=== PATIENT | female | born 1985 | race American Indian/Alaskan Native ===

== ENCOUNTER 2017-02-05 20:29 | Emergency (ER) | payer MEDICAID ==
[~2017-02-05] VITALS: Ht 162.6 cm; Wt 69.1 kg
[~2017-02-05 20:29] MED LIST: ACYC-114 PO; ASPI-650 PO; DIAZ10TA PO; DOXY100T PO; HYDR-3240 PO; HYDR-882 PO; HYDR200T PO; HYDR2TAB13 PO; LAMO100T PO; LAMO150T3 PO; LORA-445 PO; LORA0.5T PO; MELO15TA6 PO; MORP30TA81 PO; MULT-26 PO; OMEP40CA6 PO; OXYC-229 PO; OXYC10TA6 PO; SERT100T PO; VALA500T4 PO; VANC125C2 PO
[2017-02-05 20:42] VITALS: BP 129/85
== END 2017-02-05 22:37 | disposition home or self-care (01) ==
LOC: ED 22:30
DX: N99.89 Other postprocedural complications and disorders of genitourinary system (principal); N76.4 Abscess of vulva; R10.33 Periumbilical pain; Z90.49 Acquired absence of other specified parts of digestive tract; Z90.710 Acquired absence of both cervix and uterus; Z90.721 Acquired absence of ovaries, unilateral; Z88.8 Allergy status to other drugs, medicaments and biological substances
CPT/HCPCS: 99283

== ENCOUNTER 2017-02-27 20:44 | Emergency (ER) | payer MEDICAID ==
[~2017-02-27] VITALS: Ht 162.6 cm; Wt 69.3 kg
[2017-02-27 20:49] VITALS: BP 106/70
[2017-02-28] MEDS ORDERED: HYDR50CA PO (18:58)
== END 2017-02-27 23:21 | disposition home or self-care (01) ==
LOC: ED 21:17
DX: F41.1 Generalized anxiety disorder (principal); M06.9 Rheumatoid arthritis, unspecified; Z90.710 Acquired absence of both cervix and uterus; Z88.1 Allergy status to other antibiotic agents; Z88.8 Allergy status to other drugs, medicaments and biological substances
CPT/HCPCS: 93005; 99284

== ENCOUNTER 2017-04-01 15:39 | Emergency (ER) | payer MEDICAID ==
[~2017-04-01] VITALS: Ht 162.6 cm; Wt 67.9 kg
[~2017-04-01 15:39] MED LIST changes: +HYDR50CA PO
[2017-04-01] MEDS ORDERED: SODIUM CHLORIDE FLUSH 10ML SYR IVF ONE (16:30)
[2017-04-01] MEDS ORDERED: LORazepam 2 MG/ML, 1ML IVPush ONE ×2 (16:30→18:00)
[2017-04-01] MEDS ORDERED: KETOROLAC 30 MG/1 ML IVPush ONE (16:30)
[2017-04-01] MEDS ORDERED: KETOROLAC 30 MG/1 ML ONE (16:40)
[2017-04-01] MEDS ORDERED: LORazepam 2 MG/ML, 1ML ONE ×2 (16:41→17:37)
[2017-04-01 17:06] LABS: BLOOD UREA NITROGEN 12 mg/dL (7-18)
[2017-04-01] MEDS ORDERED: OMNIPAQUE 350 MG/ML, 100ML BOTTLE ONE (17:57)
[2017-04-01 18:58] VITALS: BP 127/74
== END 2017-04-01 19:00 | disposition home or self-care (01) ==
LOC: ED 17:20
DX: R00.2 Palpitations (principal); R06.00 Dyspnea, unspecified; F41.1 Generalized anxiety disorder; R06.4 Hyperventilation; Z90.710 Acquired absence of both cervix and uterus; Z90.49 Acquired absence of other specified parts of digestive tract; M06.9 Rheumatoid arthritis, unspecified
CPT/HCPCS: 36415; 71020; 71275; 80048; 82040; 84436; 84443; 84484; 85025; 85379; 93005; 96374; 96375; 96376; 99285; J1885; J2060; Q9967

== ENCOUNTER 2017-04-11 19:24 | Emergency (ER) | payer MEDICAID ==
[~2017-04-11] VITALS: Ht 162.6 cm; Wt 67.6 kg
[2017-04-11 19:24] VITALS: BP 113/68
[2017-04-11] MEDS ORDERED: KETOROLAC 30 MG/1 ML IM ONE (20:00)
[2017-04-11] MEDS ORDERED: DIAZEPAM 5 MG TABLET PO ONE (20:00)
[2017-04-11] MEDS ORDERED: KETOROLAC 30 MG/1 ML ONE (20:05)
[2017-04-11] MEDS ORDERED: DIAZEPAM 5 MG TABLET ONE (20:06)
== END 2017-04-11 22:43 | disposition home or self-care (01) ==
LOC: ED 22:11
DX: S33.5XXA Sprain of ligaments of lumbar spine, initial encounter (principal); S16.1XXA Strain of muscle, fascia and tendon at neck level, initial encounter; M06.9 Rheumatoid arthritis, unspecified; Z90.49 Acquired absence of other specified parts of digestive tract; Z90.710 Acquired absence of both cervix and uterus; Z90.721 Acquired absence of ovaries, unilateral; Z88.8 Allergy status to other drugs, medicaments and biological substances; Z91.040 Latex allergy status; X58.XXXA Exposure to other specified factors, initial encounter; Y93.89 Activity, other specified; Y92.89 Other specified places as the place of occurrence of the external cause; Y99.9 Unspecified external cause status
CPT/HCPCS: 72110; 72125; 96372; 99284; J1885

== ENCOUNTER 2017-05-21 17:46 | Emergency (ER) | payer MEDICAID ==
[~2017-05-21] VITALS: Ht 162.6 cm; Wt 66.6 kg
[~2017-05-21 17:46] MED LIST changes: -HYDR2TAB13 PO; +HYDR2TAB29 PO
[2017-05-21] MEDS ORDERED: DIAZEPAM 5 MG TABLET PO ONE (18:30)
[2017-05-21] MEDS ORDERED: ACETAMINOPHEN 325 MG TABLET PO ONE (18:30)
[2017-05-21] MEDS ORDERED: DIAZEPAM 5 MG TABLET ONE (18:47)
[2017-05-21] MEDS ORDERED: ACETAMINOPHEN 325 MG TABLET ONE (18:47)
[2017-05-21 18:51] LABS: ASPARTATE AMINO TRANSFERASE 12 U/L (15-37); BLOOD UREA NITROGEN 14 mg/dL (7-18)
[2017-05-21 19:06] VITALS: BP 103/62
== END 2017-05-21 19:44 | disposition home or self-care (01) ==
LOC: ED 19:30
DX: M79.661 Pain in right lower leg (principal); M79.662 Pain in left lower leg; M79.1 Myalgia; M06.9 Rheumatoid arthritis, unspecified; G89.29 Other chronic pain; G43.909 Migraine, unspecified, not intractable, without status migrainosus
CPT/HCPCS: 36415; 80053; 83735; 85025; 99284

== ENCOUNTER 2017-06-19 22:49 | Emergency (ER) | payer MEDICAID ==
[~2017-06-19] VITALS: Ht 162.6 cm; Wt 67.4 kg
[2017-06-19] MEDS ORDERED: TRAM50TA2 PO (23:46)
[2017-06-20] MEDS ORDERED: HYDROcodone/APAP 5/325 TABLET PO ONE
[2017-06-20] MEDS ORDERED: HYDROcodone/APAP 5/325 TABLET ONE (00:21)
[2017-06-20 01:13] VITALS: BP 134/84
== END 2017-06-20 01:15 | disposition home or self-care (01) ==
LOC: ED 23:18
DX: R10.2 Pelvic and perineal pain (principal); G43.909 Migraine, unspecified, not intractable, without status migrainosus; G89.29 Other chronic pain; M06.9 Rheumatoid arthritis, unspecified; Z90.49 Acquired absence of other specified parts of digestive tract; Z90.710 Acquired absence of both cervix and uterus; Z91.040 Latex allergy status; Z88.1 Allergy status to other antibiotic agents; Z88.5 Allergy status to narcotic agent
CPT/HCPCS: 76830; 81001; 99285

== ENCOUNTER 2017-10-05 20:46 | Emergency (ER) | payer MEDICAID ==
[~2017-10-05] VITALS: Ht 162.6 cm; Wt 70.8 kg
[~2017-10-05 20:46] MED LIST changes: -OXYC-229 PO; +OXYC-307 PO; +TRAM50TA2 PO
[2017-10-05] MEDS ORDERED: HYDROmorphone 1 MG/ML, 1ML ONE (21:29)
[2017-10-05] MEDS ORDERED: ONDANSETRON 2MG/ML, 2ML ONE (21:29)
[2017-10-05] MEDS ORDERED: ONDANSETRON ODT 4 MG PO ONE (21:30)
[2017-10-05] MEDS ORDERED: HYDROmorphone 1 MG/ML, 1ML IM ONE ×2 (21:30→23:00)
[2017-10-05 21:48] LABS: HEMATOCRIT 37.1 % (34.6-47.8); HEMOGLOBIN 12.5 g/dL (11.7-16.4); WHITE BLOOD COUNT 6.5 x10^3/uL (3.4-10)
[2017-10-05 21:53] LABS: BLOOD UREA NITROGEN 21 mg/dL (7-18)
[2017-10-05 23:40] VITALS: BP 122/80
== END 2017-10-05 23:55 | disposition home or self-care (01) ==
LOC: ED 21:06
DX: M79.604 Pain in right leg (principal); G43.909 Migraine, unspecified, not intractable, without status migrainosus; G89.29 Other chronic pain; M06.9 Rheumatoid arthritis, unspecified; Z90.49 Acquired absence of other specified parts of digestive tract; Z90.710 Acquired absence of both cervix and uterus; Z86.718 Personal history of other venous thrombosis and embolism
CPT/HCPCS: 36415; 73502; 80048; 81003; 82040; 85025; 93971; 96372; 99285; J1170; Q0162

== ENCOUNTER 2017-10-18 23:22 | Emergency (ER) | payer MEDICAID ==
[~2017-10-18] VITALS: Ht 162.6 cm; Wt 69.7 kg
[2017-10-19] MEDS ORDERED: SODIUM CHLORIDE FLUSH 10ML SYR IVF ONE
[2017-10-19] MEDS ORDERED: MAALOX/HYOSCYAMINE/LIDOCAINE 45 ML BTL PO ONE
[2017-10-19] MEDS ORDERED: SODIUM CHLORIDE 0.9% 1,000ML IVBOLUS ONE
[2017-10-19 00:15] LABS: HEMATOCRIT 40.5 % (34.6-47.8); HEMOGLOBIN 13.6 g/dL (11.7-16.4); WHITE BLOOD COUNT 5.8 x10^3/uL (3.4-10)
[2017-10-19 00:28] LABS: ASPARTATE AMINO TRANSFERASE 20 U/L (15-37); BLOOD UREA NITROGEN 17 mg/dL (7-18)
[2017-10-19 02:11] VITALS: BP 116/69
== END 2017-10-19 02:15 | disposition home or self-care (01) ==
LOC: ED 10-19 00:15
DX: R10.13 Epigastric pain (principal); R19.7 Diarrhea, unspecified; G43.909 Migraine, unspecified, not intractable, without status migrainosus; M06.9 Rheumatoid arthritis, unspecified; G89.29 Other chronic pain; Z90.49 Acquired absence of other specified parts of digestive tract
CPT/HCPCS: 36415; 74020; 80053; 81001; 83690; 85025; 87086; 96360; 99285; J7030

== ENCOUNTER 2017-11-11 16:44 | Emergency (ER) | payer MEDICAID ==
[~2017-11-11] VITALS: Ht 162.6 cm; Wt 68.1 kg
[2017-11-11] MEDS ORDERED: SODIUM CHLORIDE 0.9% 1,000ML IVBOLUS ONE (18:00)
[2017-11-11] MEDS ORDERED: ALBUTEROL SULFATE 2.5 MG/3 ML NPPB ONE (18:00)
[2017-11-11] MEDS ORDERED: APAP/CODEINE 300/30MG TABLET PO PRN (18:00)
[2017-11-11] MEDS ORDERED: ALBUTEROL SULFATE 2.5 MG/3 ML ONE (18:01)
[2017-11-11 18:03] LABS: BASOPHILS # (AUTO) 0.03 x10^3/uL (0-0.1); BASOPHILS % (AUTO) 0 % (0-1); EOSINOPHILS % (AUTO) 0 % (1-7); LYMPHOCYTES # (AUTO) 2.11 x10^3/uL (1-3.4); LYMPHOCYTES % (AUTO) 31 % (22-44); MD NO; MEAN CORPUSCULAR HEMOGLOBIN 30.2 pg (27.0-34.8); MEAN CORPUSCULAR HGB CONC 34.1 g/dL (32.4-35.8); MEAN CORPUSCULAR VOLUME 88.3 fL (80-100); MEAN PLATELET VOLUME 8.7 fL (7.4-10.4); MONOCYTES # (AUTO) 0.58 x10^3/uL (0.2-0.8); MONOCYTES % (AUTO) 8 % (2-9); NEUTROPHILS # (AUTO) 4.15 x10^3/uL (1.8-6.8); NEUTROPHILS % (AUTO) 60 % (42-75); PLATELET COUNT 214 x10^3/uL (130-400); RED BLOOD COUNT 4.42 x10^6/uL (3.82-5.3); RED CELL DISTRIBUTION WIDTH 13.3 % (9.6-15.2)
[2017-11-11 18:09] LABS: ANION GAP 7 mmol/L (5-15); CALCIUM 8.4 mg/dL (8.5-10.1); CHLORIDE 105 mmol/L (98-107); CREATININE 0.84 mg/dL (0.55-1.02)
[2017-11-11 18:20] LABS: RAPID INFLUENZA A Negative (Negative); RAPID INFLUENZA B POSITIVE (Negative)
[2017-11-11 19:36] VITALS: BP 109/65
== END 2017-11-11 19:51 | disposition home or self-care (01) ==
LOC: ED 17:31
DX: J10.1 Influenza due to other identified influenza virus with other respiratory manifestations (principal); M06.9 Rheumatoid arthritis, unspecified; G89.29 Other chronic pain
CPT/HCPCS: 36415; 71020; 80048; 85025; 87400; 93005; 94640; 96360; 99285; J7030; J7613

== ENCOUNTER 2018-07-26 20:03 | Emergency (ER) | payer MEDICAID ==
[~2018-07-26 20:03] MED LIST changes: -HYDR200T PO; +HYDR200T72 PO
== END 2018-07-26 20:19 | disposition left against medical advice (07) ==
LOC: ED 20:13
DX: R51 Headache (principal); Z53.21 Procedure and treatment not carried out due to patient leaving prior to being seen by health care provider

== ENCOUNTER 2018-07-26 23:50 | Emergency (ER) | payer MEDICAID ==
[~2018-07-26] VITALS: Ht 162.6 cm; Wt 70.0 kg
[2018-07-27 02:51] VITALS: BP 106/66
== END 2018-07-27 03:28 | disposition home or self-care (01) ==
LOC: ED 07-27 00:39
DX: G44.311 Acute post-traumatic headache, intractable (principal); M06.9 Rheumatoid arthritis, unspecified
CPT/HCPCS: 99283

== ENCOUNTER 2018-09-04 17:10 | Emergency (ER) | payer MEDICAID ==
[~2018-09-04] VITALS: Ht 162.6 cm; Wt 70.0 kg
[~2018-09-04 17:10] MED LIST changes: +HYDR-3653 PO; -HYDR-882 PO
[2018-09-04] MEDS ORDERED: ACYC-57 PO (17:39)
[2018-09-04 18:12] LABS: BASOPHILS # (AUTO) 0.05 x10^3/uL (0-0.1); BASOPHILS % (AUTO) 1 % (0-1); EOSINOPHILS % (AUTO) 2 % (1-7); LYMPHOCYTES # (AUTO) 3.41 x10^3/uL (1-3.4); LYMPHOCYTES % (AUTO) 53 % (22-44); MD SCAN; MEAN CORPUSCULAR HGB CONC 33.9 g/dL (32.4-35.8); MEAN CORPUSCULAR VOLUME 88.3 fL (80-100); MEAN PLATELET VOLUME 8.4 fL (7.4-10.4); MONOCYTES # (AUTO) 0.37 x10^3/uL (0.2-0.8); MONOCYTES % (AUTO) 6 % (2-9); NEUTROPHILS # (AUTO) 2.54 x10^3/uL (1.8-6.8); NEUTROPHILS % (AUTO) 39 % (42-75); PLATELET COUNT 261 x10^3/uL (130-400); RED CELL DISTRIBUTION WIDTH 13.5 % (9.6-15.2)
[2018-09-04 18:16] LABS: ALANINE AMINOTRANSFERASE 21 U/L (12-78); ALBUMIN 3.9 g/dL (3.4-5.0); ANION GAP 10 mmol/L (5-15); CALCIUM 8.8 mg/dL (8.5-10.1); CHLORIDE 110 mmol/L (98-107); CREATININE 0.75 mg/dL (0.55-1.02)
[2018-09-04 18:18] LABS: ALKALINE PHOSPHATASE 83 U/L (45-117); BILIRUBIN,TOTAL 0.2 mg/dL (0.2-1.0); TOTAL PROTEIN 7.6 g/dL (6.4-8.2)
[2018-09-04] MEDS ORDERED: OXYcodone/APAP 5/325MG TABLET PO ONE (18:30)
[2018-09-04] MEDS ORDERED: OXYcodone/APAP 5/325MG TABLET ONE (18:34)
[2018-09-04 18:39] LABS: HCG UR SG 1.024 (1.003-1.030); MICROSCOPIC NOT IND
[2018-09-04 18:46] LABS: CULTURE INDICATED? NO
[2018-09-04 21:16] VITALS: BP 110/68
== END 2018-09-04 21:25 | disposition home or self-care (01) ==
LOC: ED 19:03
DX: R10.32 Left lower quadrant pain (principal); R30.0 Dysuria; G43.909 Migraine, unspecified, not intractable, without status migrainosus; Z90.49 Acquired absence of other specified parts of digestive tract; Z90.710 Acquired absence of both cervix and uterus
CPT/HCPCS: 36415; 76770; 80053; 81003; 81025; 85025; 99285

== ENCOUNTER 2018-11-23 19:46 | Emergency (ER) | payer MEDICAID ==
[~2018-11-23] VITALS: Ht 162.6 cm; Wt 69.4 kg
[~2018-11-23 19:46] MED LIST changes: +ACYC-57 PO
[2018-11-23] MEDS ORDERED: ADAL20KI INJ (20:03)
[2018-11-23] MEDS ORDERED: HYDR-3622 PO (20:03)
[2018-11-23] MEDS ORDERED: LEUP7.5S INJ (20:03)
[2018-11-23 20:06] VITALS: BP 112/74
[2018-11-23 20:14] LABS: MICROSCOPIC NOT IND
[2018-11-23 20:18] LABS: CULTURE INDICATED? NO
--- NOTE | 2018-11-23 20:20 | NUR ---
PT RESTING IN BED. PT IN HOSPITAL GOWN. PT PROVIDED URINE SAMPLE WHICH HAS BEEN WALKEDTO LAB. PTON VITALS MONITORS. WILL CONTINUE TO MONITOR. CALL LIGHT WITHIN REACH.
[2018-11-23 21:03] LABS: BASOPHILS # (AUTO) 0.02 x10^3/uL (0-0.1); BASOPHILS % (AUTO) 0 % (0-1); EOSINOPHILS # (AUTO) 0.07 x10^3/uL (0-0.4); EOSINOPHILS % (AUTO) 1 % (1-7); LYMPHOCYTES % (AUTO) 45 % (22-44); MD NO; MEAN CORPUSCULAR HEMOGLOBIN 29.7 pg (27.0-34.8); MEAN CORPUSCULAR VOLUME 87.2 fL (80-100); MEAN PLATELET VOLUME 8.5 fL (7.4-10.4); MONOCYTES # (AUTO) 0.28 x10^3/uL (0.2-0.8); MONOCYTES % (AUTO) 6 % (2-9); NEUTROPHILS # (AUTO) 2.38 x10^3/uL (1.8-6.8); NEUTROPHILS % (AUTO) 48 % (42-75); PLATELET COUNT 278 x10^3/uL (130-400); RED BLOOD COUNT 4.01 x10^6/uL (3.82-5.3); RED CELL DISTRIBUTION WIDTH 14.3 % (9.6-15.2)
[2018-11-23 21:09] LABS: ANION GAP 6 mmol/L (5-15); CALCIUM 8.6 mg/dL (8.5-10.1); CHLORIDE 111 mmol/L (98-107)
== END 2018-11-23 21:34 ==
LOC: ED 21:02
DX: R10.9 Unspecified abdominal pain (principal); G43.909 Migraine, unspecified, not intractable, without status migrainosus; M06.9 Rheumatoid arthritis, unspecified; Z90.49 Acquired absence of other specified parts of digestive tract; Z90.710 Acquired absence of both cervix and uterus; Z90.89 Acquired absence of other organs; Z87.891 Personal history of nicotine dependence
CPT/HCPCS: 36415; 80048; 81003; 85025; 99283

== ENCOUNTER 2019-02-14 21:01 | Emergency (ER) | payer MEDICAID ==
[~2019-02-14] VITALS: Ht 162.6 cm; Wt 70.7 kg
[~2019-02-14 21:01] MED LIST changes: +ADAL20KI INJ; +HYDR-3622 PO; +LEUP7.5S INJ; -VANC125C2 PO; +VANC125C3 PO
--- NOTE | 2019-02-14 21:35 | NUR ---
SBAR report received from elise RNKelly. Pt changing into gown, aware of plan to have CT, labs, and IV.
--- NOTE | 2019-02-14 21:49 | NUR ---
PIV started, labs drawn. CT called to collect pt.
--- NOTE | 2019-02-14 21:50 | NUR ---
Pt to imaging, with tech, via guwil.
[2019-02-14 21:56] LABS: BASOPHILS # (AUTO) 0.03 x10^3/uL (0-0.1); BASOPHILS % (AUTO) 0 % (0-1); EOSINOPHILS # (AUTO) 0.08 x10^3/uL (0-0.4); EOSINOPHILS % (AUTO) 1 % (1-7); LYMPHOCYTES # (AUTO) 2.92 x10^3/uL (1-3.4); LYMPHOCYTES % (AUTO) 45 % (22-44); MD NO; MEAN CORPUSCULAR HEMOGLOBIN 29.1 pg (27.0-34.8); MEAN CORPUSCULAR HGB CONC 33.8 g/dL (32.4-35.8); MEAN CORPUSCULAR VOLUME 86.3 fL (80-100); MEAN PLATELET VOLUME 8.3 fL (7.4-10.4); MONOCYTES # (AUTO) 0.38 x10^3/uL (0.2-0.8); MONOCYTES % (AUTO) 6 % (2-9); NEUTROPHILS # (AUTO) 3.03 x10^3/uL (1.8-6.8); NEUTROPHILS % (AUTO) 47 % (42-75); PLATELET COUNT 346 x10^3/uL (130-400); RED BLOOD COUNT 4.51 x10^6/uL (3.82-5.3); RED CELL DISTRIBUTION WIDTH 14.1 % (9.6-15.2)
--- NOTE | 2019-02-14 21:58 | NUR ---
Pt back to room from imaging.
[2019-02-14] MEDS ORDERED: OMNIPAQUE 350 MG/ML, 100ML BOTTLE ONE (22:00)
[2019-02-14 22:06] LABS: ALANINE AMINOTRANSFERASE 39 U/L (12-78); ANION GAP 8 mmol/L (5-15); CALCIUM 8.6 mg/dL (8.5-10.1); CHLORIDE 109 mmol/L (98-107); CREATININE 0.95 mg/dL (0.55-1.02)
[2019-02-14 22:08] LABS: ALKALINE PHOSPHATASE 96 U/L (45-117); BILIRUBIN,TOTAL 0.2 mg/dL (0.2-1.0); TOTAL PROTEIN 7.9 g/dL (6.4-8.2)
--- NOTE | 2019-02-14 22:11 | NUR ---
Pt upself to bathroom, urine sample requested, education on proper collection technique done.
[2019-02-14 22:29] LABS: MICROSCOPIC NOT IND
[2019-02-14 22:36] LABS: CULTURE INDICATED? NO
[2019-02-14 23:19] VITALS: BP 114/64
--- NOTE | 2019-02-14 23:20 | NUR ---
Patient/Caregiver given discharge instructions and they have confirmed that they understand the instructions. Patient ambulatory with steady gait.
== END 2019-02-14 23:21 | disposition home or self-care (01) ==
LOC: ED 22:44
DX: L03.311 Cellulitis of abdominal wall (principal); G43.909 Migraine, unspecified, not intractable, without status migrainosus; G89.29 Other chronic pain
CPT/HCPCS: 36415; 74177; 80053; 81003; 85025; 99284; Q9967

== ENCOUNTER 2019-04-29 17:28 | Emergency (ER) | payer MEDICAID ==
[~2019-04-29] VITALS: Ht 162.6 cm; Wt 69.3 kg
[2019-04-29 18:21] LABS: MEAN CORPUSCULAR HEMOGLOBIN 29.4 pg (27.0-34.8); MEAN CORPUSCULAR HGB CONC 33.3 g/dL (32.4-35.8); MEAN CORPUSCULAR VOLUME 88.3 fL (80-100); MEAN PLATELET VOLUME 8.6 fL (7.4-10.4); PLATELET COUNT 237 x10^3/uL (130-400); RED CELL DISTRIBUTION WIDTH 14.8 % (9.6-15.2)
[2019-04-29 18:24] LABS: ALANINE AMINOTRANSFERASE 22 U/L (12-78); ALBUMIN 4.1 g/dL (3.4-5.0); ANION GAP 5 mmol/L (5-15); CALCIUM 8.9 mg/dL (8.5-10.1); CHLORIDE 107 mmol/L (98-107); CREATININE 0.93 mg/dL (0.55-1.02)
[2019-04-29 18:28] LABS: ALKALINE PHOSPHATASE 71 U/L (45-117); BILIRUBIN,TOTAL 0.2 mg/dL (0.2-1.0); TOTAL PROTEIN 7.8 g/dL (6.4-8.2)
--- NOTE | 2019-04-29 18:59 | NUR ---
NO ANSWER IN LOBBY
[2019-04-29 19:01] LABS: MD YES
[2019-04-29 19:06] LABS: <PLATELET ESTIMATE> ADEQUATE; <PLT MORPHOLOGY> NORMAL PLT MORPH; <RBC MORPHOLOGY> NORMAL; EOS#(MANUAL) 0.05 x10^3/uL (0.0-0.4); EOS% (MANUAL) 1 % (1-7); LYMPH#(MANUAL) 3.02 x10^3/uL (1-3.4); LYMPHS% (MANUAL) 58 % (22-44); MONOS#(MANUAL) 0.36 x10^3/uL (0.3-2.7); MONOS% (MANUAL) 7 % (2-9); REACTIVE LYMPHS # (MANUAL) 0.05 x10^3/uL (0-0); REACTIVE LYMPHS % (MANUAL) 1 % (0-0); SEG#(MANUAL) 1.72 x10^3/uL (1.8-6.8); SEGS% (MANUAL) 33 % (42-75)
[2019-04-29 19:52] LABS: CULTURE INDICATED? YES; MICROSCOPIC AUTO
--- NOTE | 2019-04-29 20:48 | NUR ---
Asking for meds for pain. PA aware. Patient to CT.
[2019-04-29 21:20] VITALS: BP 92/60
--- NOTE | 2019-04-29 21:20 | NUR ---
Tylenol admin. Up for DC.
[2019-04-29] MEDS ORDERED: ACETAMINOPHEN 325 MG TABLET PO ONE (21:30)
--- NOTE | 2019-04-29 21:34 | NUR ---
GIVEN DC INSTRUCTION PT UNDERSTOOD GIVEN UROLOGIST REFERAL PT UNDERSTOOD
== END 2019-04-29 21:37 | disposition home or self-care (01) ==
LOC: ED 21:31
DX: R31.29 Other microscopic hematuria (principal); R10.2 Pelvic and perineal pain; Z90.49 Acquired absence of other specified parts of digestive tract; Z90.710 Acquired absence of both cervix and uterus; Z88.5 Allergy status to narcotic agent
CPT/HCPCS: 36415; 74176; 76830; 80053; 81001; 84703; 85025; 87086; 99284

== ENCOUNTER 2020-05-12 16:38 | Emergency (ER) | payer MEDICAID ==
[~2020-05-12] VITALS: Ht 162.6 cm; Wt 70.8 kg
[~2020-05-12 16:38] MED LIST changes: -LAMO100T PO; +LAMO100T8 PO; +OMEP40CA42 PO; -OMEP40CA6 PO
[2020-05-12 16:41] VITALS: BP 117/80
== END 2020-05-12 18:15 | disposition home or self-care (01) ==
LOC: ED 17:55
DX: F41.1 Generalized anxiety disorder (principal); M19.90 Unspecified osteoarthritis, unspecified site; G89.29 Other chronic pain; Z85.43 Personal history of malignant neoplasm of ovary
CPT/HCPCS: 99283

== ENCOUNTER 2020-05-31 22:56 | Emergency (ER) | payer MEDICAID ==
[~2020-05-31] VITALS: Ht 162.6 cm; Wt 73.0 kg
[2020-05-31 23:03] VITALS: BP 143/83
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
--- NOTE | 2020-06-01 00:31 | NUR ---
Patient given discharge instructions and they have confirmed that they understand the instructions. Patient ambulatory with steady gait.
== END 2020-06-01 00:55 | disposition home or self-care (01) ==
LOC: ED 06-01 00:41
DX: G89.11 Acute pain due to trauma (principal); M25.512 Pain in left shoulder; M25.552 Pain in left hip; M32.9 Systemic lupus erythematosus, unspecified; M06.9 Rheumatoid arthritis, unspecified; Z90.49 Acquired absence of other specified parts of digestive tract; Z90.710 Acquired absence of both cervix and uterus; W18.2XXA Fall in (into) shower or empty bathtub, initial encounter; Y93.89 Activity, other specified; Y92.098 Other place in other non-institutional residence as the place of occurrence of the external cause; Y99.8 Other external cause status
CPT/HCPCS: 99284

== ENCOUNTER 2020-06-17 18:01 | Emergency (ER) | payer MEDICAID ==
[~2020-06-17] VITALS: Ht 162.6 cm; Wt 71.8 kg
[2020-06-17 18:06] VITALS: BP 108/69
[2020-06-17] MEDS ORDERED: SODIUM CHLORIDE 0.9% 1,000ML IVBOLUS ONE (18:30)
[2020-06-17 19:06] LABS: BASOPHILS # (AUTO) 0.03 x10^3/uL (0-0.1); BASOPHILS % (AUTO) 0 % (0-1); EOSINOPHILS # (AUTO) 0.08 x10^3/uL (0-0.4); EOSINOPHILS % (AUTO) 1 % (1-7); LYMPHOCYTES % (AUTO) 37 % (22-44); MD NO; MEAN CORPUSCULAR HEMOGLOBIN 28.7 pg (27.0-34.8); MEAN CORPUSCULAR HGB CONC 32.8 g/dL (32.4-35.8); MEAN CORPUSCULAR VOLUME 87.5 fL (80-100); MEAN PLATELET VOLUME 8.6 fL (7.4-10.4); MONOCYTES # (AUTO) 0.52 x10^3/uL (0.2-0.8); MONOCYTES % (AUTO) 7 % (2-9); NEUTROPHILS % (AUTO) 55 % (42-75); PLATELET COUNT 328 x10^3/uL (130-400); RED BLOOD COUNT 4.39 x10^6/uL (3.82-5.3); RED CELL DISTRIBUTION WIDTH 15.7 % (9.6-15.2)
[2020-06-17 19:18] LABS: ANION GAP 5 mmol/L (5-15); CHLORIDE 111 mmol/L (98-107); CREATININE 0.89 mg/dL (0.55-1.02)
== END 2020-06-17 20:05 | disposition home or self-care (01) ==
LOC: ED 20:00
DX: R07.89 Other chest pain (principal); Z20.828 Contact with and (suspected) exposure to other viral communicable diseases; R05 Cough; R50.9 Fever, unspecified; R06.02 Shortness of breath; R51 Headache; R19.7 Diarrhea, unspecified; M06.9 Rheumatoid arthritis, unspecified; M79.10 Myalgia, unspecified site; Z79.899 Other long term (current) drug therapy; Z90.89 Acquired absence of other organs; Z90.49 Acquired absence of other specified parts of digestive tract; Z90.710 Acquired absence of both cervix and uterus
CPT/HCPCS: 36415; 71045; 80048; 82040; 85025; 87635; 93005; 96360; 99285; J7030

== ENCOUNTER 2020-09-14 18:40 | Emergency (ER) | payer MEDICAID ==
[~2020-09-14] VITALS: Ht 162.6 cm; Wt 70.7 kg
[2020-09-14 19:09] VITALS: BP 110/51
--- NOTE | 2020-09-14 19:34 | NUR ---
LLE PAIN STARTED WHILE GOING UP STAIRS AT WORK 12 NOON TODAY. FELT LIKE A PULLING PAIN AND A CRAMP. HX OF PREVIOUS KNEE SURGERY. ABLE TO AMBULATE MINIMAL SWELLING NOTED CMS INTACT
--- NOTE | 2020-09-14 20:02 | NUR ---
RECEIVED REPORT FROM LAYA PRESTON TO ASSUME CARE OF PT.
--- NOTE | 2020-09-14 20:11 | NUR ---
PT. REQUESTING PAIN MEDS. DR. MARKS AT BS AT THIS TIME.
[2020-09-14] MEDS ORDERED: HYDROcodone/APAP 5/325 TABLET ONE (20:21)
[2020-09-14] MEDS ORDERED: HYDROcodone/APAP 5/325 TABLET PO ONE (20:30)
== END 2020-09-14 20:35 | disposition home or self-care (01) ==
LOC: ED 20:00
DX: G89.11 Acute pain due to trauma (principal); M25.562 Pain in left knee; Z96.652 Presence of left artificial knee joint; X58.XXXA Exposure to other specified factors, initial encounter; Y93.89 Activity, other specified; Y92.89 Other specified places as the place of occurrence of the external cause; Y99.8 Other external cause status
CPT/HCPCS: 99283

== ENCOUNTER 2020-11-08 19:55 | Emergency (ER) | payer MEDICAID ==
[~2020-11-08] VITALS: Ht 162.6 cm; Wt 70.3 kg
[2020-11-08] MEDS ORDERED: HYDROmorphone 1 MG/ML, 1ML INJ ONE (20:23)
[2020-11-08] MEDS ORDERED: HYDROmorphone 1 MG/ML, 1ML INJ IM ONE (20:30)
--- NOTE | 2020-11-08 20:31 | NUR ---
PT MEDICATED PER JAN, PT SITTING IN TRIAGE 2 FOR MONITORING FOR NEXT 15 MIN
[2020-11-08 20:49] VITALS: BP 125/74
== END 2020-11-08 20:50 | disposition home or self-care (01) ==
LOC: ED 20:00
DX: M25.562 Pain in left knee (principal); G43.909 Migraine, unspecified, not intractable, without status migrainosus; Z90.89 Acquired absence of other organs; Z90.49 Acquired absence of other specified parts of digestive tract; Z90.710 Acquired absence of both cervix and uterus; Z90.721 Acquired absence of ovaries, unilateral; Z87.891 Personal history of nicotine dependence
CPT/HCPCS: 96372; 99283; J1170

== ENCOUNTER 2020-11-30 20:11 | Emergency (ER) | payer MEDICAID ==
[~2020-11-30] VITALS: Ht 162.6 cm; Wt 68.8 kg
[2020-11-30] MEDS ORDERED: ONDANSETRON 2MG/ML, 2ML IVPush ONE (20:30)
[2020-11-30] MEDS ORDERED: HYDROmorphone 1 MG/ML, 1ML INJ IVPush PRN (20:30)
[2020-11-30] MEDS ORDERED: SODIUM CHLORIDE 0.9% 1,000ML IVBOLUS ONE (20:30)
[2020-11-30 20:45] LABS: BASOPHILS % (AUTO) 1 % (0-1); EOSINOPHILS % (AUTO) 0 % (1-7); LYMPHOCYTES % (AUTO) 36 % (22-44); MEAN CORPUSCULAR HEMOGLOBIN 29.6 pg (27.0-34.8); MEAN PLATELET VOLUME 8.1 fL (7.4-10.4); MONOCYTES % (AUTO) 6 % (2-9); NEUTROPHILS % (AUTO) 58 % (42-75); PLATELET COUNT 334 x10^3/uL (130-400); RED BLOOD COUNT 4.24 x10^6/uL (3.82-5.3); RED CELL DISTRIBUTION WIDTH 15.4 % (9.6-15.2)
--- NOTE | 2020-11-30 20:45 | NUR ---
C/O RT OVARIAN AREA PAIN X 2 DAYS; WORSENED TODAY. +N./V./ TOOK TORADOL AND HYDROCODONE AT 1745. TOOK ZOFRAN AT 0930. LAST ORAL INTAKE: 0700. LAST BM: TODAY.
[2020-11-30] MEDS ORDERED: HYDR-3245 PO (20:49)
--- NOTE | 2020-11-30 20:50 | NUR ---
ROOM LIGHTS OFF FOR U/S. UNABLE TO START IV AT THIS TIME.
[2020-11-30 20:51] LABS: MD NO
[2020-11-30 20:58] LABS: ALANINE AMINOTRANSFERASE 19 U/L (12-78); ALBUMIN 4.3 g/dL (3.4-5.0); ANION GAP 9 mmol/L (5-15); CALCIUM 8.9 mg/dL (8.5-10.1); CHLORIDE 111 mmol/L (98-107); CREATININE 0.88 mg/dL (0.55-1.02)
[2020-11-30 21:01] LABS: ALKALINE PHOSPHATASE 82 U/L (45-117); BILIRUBIN,TOTAL 0.3 mg/dL (0.2-1.0); TOTAL PROTEIN 7.7 g/dL (6.4-8.2)
[2020-11-30] MEDS ORDERED: HYDROmorphone 1 MG/ML, 1ML INJ ONE (21:16)
[2020-11-30] MEDS ORDERED: ONDANSETRON 2MG/ML, 2ML ONE (21:17)
--- NOTE | 2020-11-30 21:30 | NUR ---
NS BOLUS STARTED. ZOFRAN & DILAUDID GIVEN PER EMAR.
[2020-11-30] MEDS ORDERED: KETO10TA PO (21:33)
--- NOTE | 2020-11-30 21:33 | NUR ---
REPORTS DECREASED PAIN. SIDE RAILS UP X2, CALL LIGHT W/IN REACH./
[2020-11-30] MEDS ORDERED: ELAG200T PO (21:36)
--- NOTE | 2020-11-30 21:38 | NUR ---
REPORT RECIEVED FROM LAYA VELAZQUEZ
--- NOTE | 2020-11-30 21:38 | NUR ---
PT NOTIFIED OF NEED FOR URINE SPECIMEN; COLLECTION BOTTLE PROVIDED.
--- NOTE | 2020-11-30 21:38 | NUR ---
PT REPORT TO LAYA VALVERDE. PT CARE TRANSFERRED.
[2020-11-30] MEDS ORDERED: KETOROLAC 30 MG/1 ML ONE (22:29)
[2020-11-30] MEDS ORDERED: KETOROLAC 30 MG/1 ML IVPush ONE (22:30)
--- NOTE | 2020-11-30 22:38 | NUR ---
PATIENT HIT CALL BURK. PATIENT CRYING IN PAIN, 08/22. TORADOL GIVEN, NO IMPROVEMENTS IN PAIN. PROVIDER NOTIFIED. WILL AWAIT FURTHER ORDERS.
--- NOTE | 2020-11-30 23:03 | NUR ---
PATIENT CLEARED FOR DISCHARGE. NO NOTED ACUTE DISTRESS. PATIENT VERBALIZED UNDERSTANDING OF SELF CARE AND FOLLOW UP CARE AT HOME. PATIENT VERBALIZED UNDERSTANDING OF PRESCRIPTIONS. PATIENT AMBULATORY TO DISCHARGE DESK WITH BELONGINGS WITHOUT COMPLICATIONS.
[2020-11-30 23:04] VITALS: BP 113/74
== END 2020-11-30 23:06 | disposition home or self-care (01) ==
LOC: ED 21:10
DX: N83.291 Other ovarian cyst, right side (principal); R10.2 Pelvic and perineal pain; M32.9 Systemic lupus erythematosus, unspecified
CPT/HCPCS: 36415; 76830; 80053; 85025; 96361; 96374; 96375; 99284; J1170; J1885; J2405; J7030

== ENCOUNTER 2020-12-10 16:50 | Emergency (ER) | payer MEDICAID ==
[~2020-12-10] VITALS: Ht 162.6 cm; Wt 68.4 kg
[~2020-12-10 16:50] MED LIST changes: +ELAG200T PO; +HYDR-1067 PO; -HYDR-3240 PO; +HYDR-3245 PO; +KETO10TA PO; -OXYC-307 PO; +OXYC-380 PO
[2020-12-10] MEDS ORDERED: HYDROmorphone 2 MG/ML, 1ML IM ONE (18:00)
[2020-12-10] MEDS ORDERED: HYDROmorphone 1 MG/ML, 1ML INJ ONE (18:03)
--- NOTE | 2020-12-10 18:07 | NUR ---
PT PROVIDED URINE SAMPLE. UA COLLECTED AND TAKEN TO LAB. MEDS ADMIN PER JAN. LAB AT BEDSIDE. AWAITING CT.
[2020-12-10 18:17] LABS: BASOPHILS % (AUTO) 0 % (0-1); EOSINOPHILS % (AUTO) 1 % (1-7); LYMPHOCYTES % (AUTO) 41 % (22-44); MEAN CORPUSCULAR HEMOGLOBIN 29.8 pg (27.0-34.8); MEAN PLATELET VOLUME 7.7 fL (7.4-10.4); MONOCYTES % (AUTO) 6 % (2-9); NEUTROPHILS % (AUTO) 52 % (42-75); PLATELET COUNT 338 x10^3/uL (130-400); RED BLOOD COUNT 4.23 x10^6/uL (3.82-5.3); RED CELL DISTRIBUTION WIDTH 14.9 % (9.6-15.2)
[2020-12-10 18:20] LABS: MICROSCOPIC INDICATED
[2020-12-10 18:21] LABS: MD NO
--- NOTE | 2020-12-10 18:28 | NUR ---
PT AT CT
--- NOTE | 2020-12-10 18:52 | NUR ---
ALL RESULTS ARE BACK AT THIS TIME. CHART UP FOR RECHECK.
[2020-12-10 19:06] VITALS: BP 112/71
== END 2020-12-10 19:15 | disposition home or self-care (01) ==
LOC: ED 19:00
DX: G89.29 Other chronic pain (principal); R10.2 Pelvic and perineal pain; M19.90 Unspecified osteoarthritis, unspecified site; Z90.89 Acquired absence of other organs; Z90.49 Acquired absence of other specified parts of digestive tract; Z85.43 Personal history of malignant neoplasm of ovary; Z90.710 Acquired absence of both cervix and uterus; Z90.721 Acquired absence of ovaries, unilateral
CPT/HCPCS: 36415; 74176; 81001; 85025; 96372; 99284; J1170

== ENCOUNTER 2020-12-11 20:00 | Emergency (ER) | payer MEDICAID ==
[~2020-12-11] VITALS: Ht 162.6 cm; Wt 68.3 kg
--- NOTE | 2020-12-11 20:24 | NUR ---
CC OF ABD PAIN 10/10 FROM ENDOMETREOSIS. PT WAS SEEN HER LAST NIGHT, THEN SEEN BY HER NEW ELEVATOR STARTER TODAY AND WAS TOLD SHE NEEDS SURGERY BUT SHE MIGHT HAVE TO WAIT GOING THROUGH THEM AND TO COME TO THE ER IF THE PAIN IS GETTING WORSE AND SEE IF WE CAN CALL THE OB PROCESS SAFETY SPECIALIST. PT IN TEARS STATING SHE CANT TAKE THE PAIN ANYMORE
--- NOTE | 2020-12-11 20:57 | NUR ---
Report from rory covering for break.
[2020-12-11] MEDS ORDERED: HYDROmorphone 2 MG/ML, 1ML ONE (20:59)
[2020-12-11] MEDS ORDERED: HYDROmorphone/PF 4 MG/ML, 1ML IM ONE (21:00)
--- NOTE | 2020-12-11 21:05 | NUR ---
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 VSS.
[2020-12-11 21:17] VITALS: BP 135/78
[2020-12-11] MEDS ORDERED: HYDROmorphone 1 MG/ML, 1ML INJ IM ONE (21:30)
== END 2020-12-11 21:20 | disposition home or self-care (01) ==
LOC: ED 20:23
DX: G89.29 Other chronic pain (principal); R10.2 Pelvic and perineal pain; R10.9 Unspecified abdominal pain; M19.90 Unspecified osteoarthritis, unspecified site; Z90.89 Acquired absence of other organs; Z90.49 Acquired absence of other specified parts of digestive tract; Z90.710 Acquired absence of both cervix and uterus; Z90.721 Acquired absence of ovaries, unilateral
CPT/HCPCS: 96372; 99283; J1170

== ENCOUNTER 2020-12-18 18:51 | Emergency (ER) | payer MEDICAID ==
[~2020-12-18] VITALS: Ht 162.6 cm; Wt 68.7 kg
[~2020-12-18 18:51] MED LIST changes: +ASPI-1026 PO; -ASPI-650 PO; -HYDR-3245 PO; +HYDR1TAB53 PO
[2020-12-18] MEDS ORDERED: MORPHINE SULFATE 4 MG/ML, 1ML ONE (19:50)
[2020-12-18] MEDS ORDERED: ONDANSETRON 2MG/ML, 2ML ONE (19:50)
[2020-12-18] MEDS ORDERED: MORPHINE SULFATE 4 MG/ML, 1ML IVPush PRN (20:00)
[2020-12-18] MEDS ORDERED: SODIUM CHLORIDE 0.9% 1,000 ML IV ONE (20:00)
[2020-12-18] MEDS ORDERED: SODIUM CHLORIDE FLUSH 10ML SYR IVF ONE (20:00)
[2020-12-18] MEDS ORDERED: ONDANSETRON 2MG/ML, 2ML IVPush ONE (20:00)
--- NOTE | 2020-12-18 20:27 | NUR ---
IN ROOM TO OBTAIN IV ACCESS. IV ACCESS ESTABLISHED RIGHT EJ. PRIMARY MADE AWARE.
[2020-12-18 20:31] LABS: BASOPHILS % (AUTO) 1 % (0-1); EOSINOPHILS % (AUTO) 3 % (1-7); LYMPHOCYTES % (AUTO) 39 % (22-44); MEAN CORPUSCULAR HEMOGLOBIN 29.2 pg (27.0-34.8); MEAN CORPUSCULAR HGB CONC 33.3 g/dL (32.4-35.8); MEAN PLATELET VOLUME 8.1 fL (7.4-10.4); MONOCYTES % (AUTO) 7 % (2-9); NEUTROPHILS % (AUTO) 50 % (42-75); PLATELET COUNT 273 x10^3/uL (130-400); RED BLOOD COUNT 4.05 x10^6/uL (3.82-5.3); RED CELL DISTRIBUTION WIDTH 14.8 % (9.6-15.2)
[2020-12-18 20:33] LABS: MD NO
--- NOTE | 2020-12-18 20:35 | NUR ---
PT BIB VIA POV. PT HAD ABD SURGERY ON MONDAY AND PT IS NOW HAVING CHEST PAIN WITH SOB AND INCREASED ABD PAIN. PT STATED SHE HAS A HX OF BLOOD CLOTS IN LEGS. PT RESTING IN [facility], MONITORING IN PLACE, MEDICATED PER JENNY GRANGER AT THIS TIME, WCTM.
[2020-12-18 20:42] LABS: ALBUMIN 3.7 g/dL (3.4-5.0); ANION GAP 7 mmol/L (5-15); CALCIUM 8.4 mg/dL (8.5-10.1); CHLORIDE 110 mmol/L (98-107)
[2020-12-18] MEDS ORDERED: HYDROmorphone 1 MG/ML, 1ML INJ ONE ×2 (20:45→22:40)
[2020-12-18 20:47] LABS: ALANINE AMINOTRANSFERASE 18 U/L (12-78); ALKALINE PHOSPHATASE 62 U/L (45-117); BILIRUBIN,TOTAL 0.3 mg/dL (0.2-1.0); CREATININE 0.74 mg/dL (0.55-1.02); TOTAL PROTEIN 7.1 g/dL (6.4-8.2); TROPONIN I < 0.015 ng/mL (0.000-0.045)
[2020-12-18] MEDS ORDERED: OMNIPAQUE 350 MG/ML, 100ML BOTTLE ONE (21:00)
[2020-12-18] MEDS ORDERED: HYDROmorphone 1 MG/ML, 1ML INJ IV ONE ×2 (21:00→22:30)
--- NOTE | 2020-12-18 22:20 | NUR ---
PT RESTING IN JENNY ALVARADO AT THIS TIME, MONITORING IN PLACE, WCTM.
[2020-12-18 23:22] VITALS: BP 125/83
== END 2020-12-18 23:24 | disposition home or self-care (01) ==
LOC: ED 21:45
DX: G89.29 Other chronic pain (principal); R10.84 Generalized abdominal pain; R07.89 Other chest pain; R06.02 Shortness of breath; R94.31 Abnormal electrocardiogram [ECG] [EKG]; M19.90 Unspecified osteoarthritis, unspecified site; G43.909 Migraine, unspecified, not intractable, without status migrainosus; Z85.43 Personal history of malignant neoplasm of ovary; Z90.710 Acquired absence of both cervix and uterus; Z90.89 Acquired absence of other organs; Z90.49 Acquired absence of other specified parts of digestive tract; Z90.721 Acquired absence of ovaries, unilateral
CPT/HCPCS: 36415; 71275; 74022; 74177; 80053; 84484; 84703; 85025; 85379; 93005; 96361; 96374; 96375; 96376; 99285; J1170; J2270; J2405; J7030; Q9967

== ENCOUNTER 2020-12-23 18:22 | Emergency (ER) | payer MEDICAID ==
[~2020-12-23] VITALS: Ht 162.6 cm; Wt 68.4 kg
--- NOTE | 2020-12-23 20:03 | NUR ---
PT NOT IN LOBBY WHEN CALLED
--- NOTE | 2020-12-23 20:22 | NUR ---
INITIAL PT CONTACT. PT PRESENTS TO ED C/O CONSTIPATION, LAST "FULL BM" 8 DAYS AGO S/P LAPROSCOPY FOR ENDOMETREOSIS. HAD ABD XRAY TODAY CONFIRMING CONSTIPATION. PT STATES SHE HAS USED MULTIPLE OTC TX FOR CONSTIPATION WITH NO RELIEF, ORAL MEDS AND ENEMAS AT HOME. PT ALSO C/O SORE THROAT, FEVER/CHILLS AND MUSCLE ACHES. PT STATES "I HAVEN'T BEEN ABLE TO HAVE A FULL, REGULAR BOWEL MOVEMENT BUT I HAVE BEEN ABLE TO PASS GAS AND I HAVE ACTUALLY HAD SOME DIARRHEA". PT SITTING UPRIGHT ON JENNY VSErnestine. CALL LIGHT IN REACH. AWAITING ERP.
--- NOTE | 2020-12-23 20:34 | NUR ---
ERP AT BEDSIDE
[2020-12-23] MEDS ORDERED: ONDANSETRON 2MG/ML, 2ML ONE (20:55)
[2020-12-23] MEDS ORDERED: HYDROmorphone 1 MG/ML, 1ML INJ ONE ×2 (20:55→21:43)
[2020-12-23] MEDS: HYDROmorphone 2 MG/ML, 1ML IVPush PRN ×2 (20:58→21:50)
[2020-12-23] MEDS ORDERED: ONDANSETRON 2MG/ML, 2ML IVPush ONE (21:00)
[2020-12-23] MEDS ORDERED: SODIUM CHLORIDE FLUSH 10ML SYR IVF ONE (21:00)
[2020-12-23] MEDS ORDERED: SODIUM CHLORIDE 0.9% 1,000ML IVBOLUS ONE (21:00)
--- NOTE | 2020-12-23 21:03 | NUR ---
PT SITTING UPRIGHT ON GURNEY, VSS. MEDICATED PER EMAR. CALL LIGHT AND PERSONAL BELONGINGS WITHIN REACH. NO ADDITIONAL NEEDS AT THIS TIME. AWAITING CT
[2020-12-23 21:07] LABS: BASOPHILS % (AUTO) 1 % (0-1); EOSINOPHILS % (AUTO) 1 % (1-7); LYMPHOCYTES % (AUTO) 38 % (22-44); MEAN CORPUSCULAR HEMOGLOBIN 29.4 pg (27.0-34.8); MEAN CORPUSCULAR HGB CONC 33.8 g/dL (32.4-35.8); MEAN PLATELET VOLUME 8.4 fL (7.4-10.4); MONOCYTES % (AUTO) 6 % (2-9); NEUTROPHILS % (AUTO) 55 % (42-75); PLATELET COUNT 298 x10^3/uL (130-400); RED BLOOD COUNT 4.26 x10^6/uL (3.82-5.3); RED CELL DISTRIBUTION WIDTH 14.9 % (9.6-15.2)
[2020-12-23 21:10] LABS: MD NO
[2020-12-23 21:17] LABS: ALANINE AMINOTRANSFERASE 16 U/L (12-78); ALBUMIN 3.8 g/dL (3.4-5.0); ANION GAP 6 mmol/L (5-15); CALCIUM 9.3 mg/dL (8.5-10.1); CHLORIDE 110 mmol/L (98-107); CREATININE 0.83 mg/dL (0.55-1.02)
[2020-12-23 21:19] LABS: ALKALINE PHOSPHATASE 72 U/L (45-117); BILIRUBIN,TOTAL 0.2 mg/dL (0.2-1.0); TOTAL PROTEIN 7.8 g/dL (6.4-8.2)
--- NOTE | 2020-12-23 21:35 | NUR ---
PT UP TO BATHROOM WITH STEADY GAIT, URINE SAMPLE OBTAINED. PT REQUESTING ADDITIONAL PAIN MEDICATION. WILL MEDICATE PER EMAR
--- NOTE | 2020-12-23 21:40 | NUR ---
PT TO CT.
[2020-12-23 21:54] LABS: MICROSCOPIC NOT IND
--- NOTE | 2020-12-23 22:05 | NUR ---
PT SITTING UPRIGHT ON JENNY ALVARADO VSErnestine. PT REPORTS IMPROVED PAIN FOLLOWING CORPORATE LEARNING CONSULTANT. DENIES ANY ADDITIONAL NEEDS AT THIS TIME. CALL LIGHT AND PERSONAL BELONGINGS WITHIN REACH.
[2020-12-23] MEDS ORDERED: OMNIPAQUE 350 MG/ML, 100ML BOTTLE ONE (22:20)
[2020-12-23] MEDS ORDERED: METHYLNALTREXONE 12 MG/0.6 ML SYR SQ ONE ×2 (22:49→23:00)
[2020-12-23 23:14] VITALS: BP 107/62
--- NOTE | 2020-12-23 23:14 | NUR ---
Patient given discharge instructions and they have confirmed that they understand the instructions. Patient ambulatory with steady gait.
== END 2020-12-23 23:25 | disposition home or self-care (01) ==
LOC: ED 21:34
DX: K43.9 Ventral hernia without obstruction or gangrene (principal); K59.00 Constipation, unspecified; R10.84 Generalized abdominal pain; R19.7 Diarrhea, unspecified
CPT/HCPCS: 36415; 74177; 80053; 81003; 83690; 85025; 96361; 96372; 96374; 96375; 96376; 99285; J1170; J2405; J7030; Q9967

== ENCOUNTER 2020-12-27 19:59 | Emergency (ER) | payer MEDICAID ==
[~2020-12-27] VITALS: Ht 162.6 cm; Wt 68.0 kg
[2020-12-27 21:13] VITALS: BP 113/72
== END 2020-12-27 21:15 | disposition home or self-care (01) ==
LOC: ED 20:30
DX: S00.93XA Contusion of unspecified part of head, initial encounter (principal); M54.2 Cervicalgia; G43.909 Migraine, unspecified, not intractable, without status migrainosus; Z90.89 Acquired absence of other organs; Z90.710 Acquired absence of both cervix and uterus; Z90.722 Acquired absence of ovaries, bilateral; Z90.49 Acquired absence of other specified parts of digestive tract; Y04.8XXA Assault by other bodily force, initial encounter; Y93.89 Activity, other specified; Y92.511 Restaurant or cafe as the place of occurrence of the external cause; Y99.0 Civilian activity done for income or pay
CPT/HCPCS: 70450; 72125; 99285

== ENCOUNTER 2021-01-02 22:53 | Emergency (ER) | payer MEDICAID ==
[~2021-01-02] VITALS: Ht 162.6 cm; Wt 69.0 kg
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
[2021-01-02] MEDS ORDERED: HYDROcodone/APAP 5/325 TABLET PO ONE (23:30)
[2021-01-02] MEDS ORDERED: ONDANSETRON ODT 4 MG PO ONE (23:30)
[2021-01-02] MEDS ORDERED: HYDROcodone/APAP 5/325 TABLET ONE (23:42)
[2021-01-02] MEDS ORDERED: ONDANSETRON ODT 4 MG ONE (23:42)
--- NOTE | 2021-01-02 23:48 | NUR ---
Pt back from imaging. Medicated pt per eMAR.
--- NOTE | 2021-01-03 00:24 | NUR ---
Pt to XR
[2021-01-03] MEDS ORDERED: DIPHENHYDRAMINE 25 MG CAPSULE ONE (01:21)
[2021-01-03 01:23] VITALS: BP 107/75
--- NOTE | 2021-01-03 01:23 | NUR ---
Benadryl not given, pt reports she just wants to take her own at home.
--- NOTE | 2021-01-03 01:24 | NUR ---
C-collar removed by provider.
[2021-01-03] MEDS ORDERED: DIPHENHYDRAMINE 25 MG CAPSULE PO ONE (01:30)
== END 2021-01-03 01:31 | disposition home or self-care (01) ==
LOC: ED 23:30
DX: S06.0X0A Concussion without loss of consciousness, initial encounter (principal); S16.1XXA Strain of muscle, fascia and tendon at neck level, initial encounter; S39.012A Strain of muscle, fascia and tendon of lower back, initial encounter; M54.6 Pain in thoracic spine; R11.10 Vomiting, unspecified; G43.909 Migraine, unspecified, not intractable, without status migrainosus; Z90.49 Acquired absence of other specified parts of digestive tract; M32.9 Systemic lupus erythematosus, unspecified; Z90.710 Acquired absence of both cervix and uterus; Z88.1 Allergy status to other antibiotic agents; Z88.6 Allergy status to analgesic agent; W07.XXXA Fall from chair, initial encounter; Y93.89 Activity, other specified; Y92.098 Other place in other non-institutional residence as the place of occurrence of the external cause; Y99.8 Other external cause status
CPT/HCPCS: 70450; 72072; 72110; 72125; 99285; Q0162

== ENCOUNTER 2021-01-07 19:39 | Emergency (ER) | payer MEDICAID ==
[~2021-01-07] VITALS: Ht 162.6 cm; Wt 70.0 kg
[2021-01-07 20:22] LABS: HCG UR SG 1.019 (1.003-1.030)
[2021-01-07 20:23] LABS: MICROSCOPIC NOT IND
[2021-01-07 20:48] LABS: BASOPHILS % (AUTO) 0 % (0-1); EOSINOPHILS % (AUTO) 1 % (1-7); LYMPHOCYTES % (AUTO) 42 % (22-44); MEAN CORPUSCULAR HEMOGLOBIN 29.6 pg (27.0-34.8); MEAN CORPUSCULAR HGB CONC 33.6 g/dL (32.4-35.8); MONOCYTES % (AUTO) 6 % (2-9); NEUTROPHILS % (AUTO) 51 % (42-75); PLATELET COUNT 305 x10^3/uL (130-400); RED BLOOD COUNT 3.88 x10^6/uL (3.82-5.3)
[2021-01-07 20:55] LABS: ALBUMIN 3.6 g/dL (3.4-5.0); ANION GAP 6 mmol/L (5-15); CALCIUM 8.3 mg/dL (8.5-10.1); CHLORIDE 112 mmol/L (98-107)
[2021-01-07 21:00] LABS: MD NO
--- NOTE | 2021-01-07 21:43 | NUR ---
FIRST CONTACT. PT BACK BROUGHT TO ROOM. PT STATES 7/10 PAIN. AWARE.
[2021-01-07] MEDS ORDERED: METHOCARBAMOL 750 MG TABLET ONE (21:51)
--- NOTE | 2021-01-07 21:53 | NUR ---
BEDSIDE REPORT FROM SERENE ASIF
[2021-01-07] MEDS ORDERED: METHOCARBAMOL 750 MG TABLET PO ONE (22:00)
[2021-01-07 22:41] VITALS: BP 104/62
--- NOTE | 2021-01-07 22:41 | NUR ---
Patient given discharge instructions and they have confirmed that they understand the instructions. Patient ambulatory with steady gait.
== END 2021-01-07 22:43 | disposition home or self-care (01) ==
LOC: ED 21:31
DX: S39.012A Strain of muscle, fascia and tendon of lower back, initial encounter (principal); G43.909 Migraine, unspecified, not intractable, without status migrainosus; N83.291 Other ovarian cyst, right side; R91.1 Solitary pulmonary nodule; R31.9 Hematuria, unspecified; R11.0 Nausea; T50.905A Adverse effect of unspecified drugs, medicaments and biological substances, initial encounter; M19.90 Unspecified osteoarthritis, unspecified site; Z90.89 Acquired absence of other organs; Z90.49 Acquired absence of other specified parts of digestive tract; Z90.710 Acquired absence of both cervix and uterus; Z90.721 Acquired absence of ovaries, unilateral; X58.XXXA Exposure to other specified factors, initial encounter; Y93.89 Activity, other specified; Y92.89 Other specified places as the place of occurrence of the external cause; Y99.8 Other external cause status
CPT/HCPCS: 36415; 74176; 80048; 81003; 81025; 82040; 85025; 99284

== ENCOUNTER 2021-01-10 22:31 | Emergency (ER) | payer MEDICAID ==
[~2021-01-10] VITALS: Ht 162.6 cm; Wt 69.0 kg
[2021-01-10] MEDS ORDERED: HYDROmorphone 1 MG/ML, 1ML INJ SQ STA (22:50)
[2021-01-10] MEDS ORDERED: HYDROmorphone 1 MG/ML, 1ML INJ ONE (23:02)
[2021-01-10 23:12] LABS: BASOPHILS % (AUTO) 0 % (0-1); EOSINOPHILS % (AUTO) 1 % (1-7); LYMPHOCYTES % (AUTO) 43 % (22-44); MEAN CORPUSCULAR HEMOGLOBIN 29.9 pg (27.0-34.8); MEAN CORPUSCULAR HGB CONC 34.1 g/dL (32.4-35.8); MEAN PLATELET VOLUME 8.3 fL (7.4-10.4); MONOCYTES % (AUTO) 6 % (2-9); NEUTROPHILS % (AUTO) 50 % (42-75); PLATELET COUNT 353 x10^3/uL (130-400); RED BLOOD COUNT 4.13 x10^6/uL (3.82-5.3); RED CELL DISTRIBUTION WIDTH 14.9 % (9.6-15.2)
[2021-01-10 23:14] LABS: MD NO
--- NOTE | 2021-01-10 23:17 | NUR ---
C/O RIGHT GROIN PAIN. PATIENT STATES IT IS HER OVARIAN CYST. BLOOD IN URINE NOTICED 2 HRS AGO Addendum: 01/10/21 at 2342 by SEVERINO PT STATES RELIEF WITH PAIN MED
[2021-01-10 23:25] LABS: ALBUMIN 3.9 g/dL (3.4-5.0); ANION GAP 9 mmol/L (5-15); CHLORIDE 107 mmol/L (98-107); CREATININE 0.71 mg/dL (0.55-1.02)
[2021-01-10 23:47] VITALS: BP 112/83
== END 2021-01-11 00:25 | disposition home or self-care (01) ==
LOC: ED 23:06
DX: N83.01 Follicular cyst of right ovary (principal); Z90.89 Acquired absence of other organs; Z90.49 Acquired absence of other specified parts of digestive tract; Z90.710 Acquired absence of both cervix and uterus; Z90.722 Acquired absence of ovaries, bilateral
CPT/HCPCS: 36415; 76830; 80048; 82040; 85025; 96372; 99284; J1170

== ENCOUNTER 2021-01-26 20:47 | Emergency (ER) | payer MEDICAID ==
[~2021-01-26] VITALS: Ht 162.6 cm; Wt 69.2 kg
[2021-01-26 20:58] VITALS: BP 126/75
== END 2021-01-26 22:11 | disposition home or self-care (01) ==
LOC: ED 22:05
DX: J01.90 Acute sinusitis, unspecified (principal); B97.89 Other viral agents as the cause of diseases classified elsewhere; M19.90 Unspecified osteoarthritis, unspecified site; Z85.43 Personal history of malignant neoplasm of ovary; Z90.49 Acquired absence of other specified parts of digestive tract; Z90.89 Acquired absence of other organs; Z90.710 Acquired absence of both cervix and uterus; Z90.721 Acquired absence of ovaries, unilateral
CPT/HCPCS: 99283

== ENCOUNTER 2021-01-31 18:02 | Emergency (ER) | payer MEDICAID ==
[~2021-01-31] VITALS: Ht 162.6 cm; Wt 68.5 kg
--- NOTE | 2021-01-31 19:15 | NUR ---
patient presented to room with tremors, tachypneic and clammy. patient was also tachycardic on monitors with elevated BP. attempted IV and unsuccessful. lab at bedside for lab draw. patient also ambulated to bathroom with steady gait. call souza in reach. safety maintained. RN at bedside for length of time due to severity of acute symptoms
[2021-01-31] MEDS ORDERED: ONDANSETRON 2MG/ML, 2ML ONE (19:19)
[2021-01-31] MEDS ORDERED: HYDROmorphone 1 MG/ML, 1ML INJ ONE ×2 (19:19→20:43)
[2021-01-31] MEDS: HYDROmorphone 1 MG/ML, 1ML INJ IVPush PRN ×2 (19:24→20:47)
[2021-01-31 19:27] LABS: BASOPHILS % (AUTO) 1 % (0-1); EOSINOPHILS % (AUTO) 1 % (1-7); LYMPHOCYTES % (AUTO) 44 % (22-44); MEAN CORPUSCULAR HEMOGLOBIN 29.6 pg (27.0-34.8); MEAN CORPUSCULAR HGB CONC 33.6 g/dL (32.4-35.8); MEAN PLATELET VOLUME 7.9 fL (7.4-10.4); MONOCYTES % (AUTO) 7 % (2-9); NEUTROPHILS % (AUTO) 48 % (42-75); PLATELET COUNT 318 x10^3/uL (130-400); RED BLOOD COUNT 4.19 x10^6/uL (3.82-5.3); RED CELL DISTRIBUTION WIDTH 14.8 % (9.6-15.2)
[2021-01-31 19:28] LABS: MD NO
[2021-01-31] MEDS ORDERED: ONDANSETRON 2MG/ML, 2ML IVPush ONE (19:30)
[2021-01-31] MEDS ORDERED: SODIUM CHLORIDE 0.9% 1,000ML IVBOLUS ONE (19:30)
[2021-01-31] MEDS ORDERED: ACETAMINOPHEN 500 MG TABLET PO ONE (19:30)
[2021-01-31 19:33] LABS: ALBUMIN 3.9 g/dL (3.4-5.0); ANION GAP 7 mmol/L (5-15); CALCIUM 8.5 mg/dL (8.5-10.1); CHLORIDE 114 mmol/L (98-107); CREATININE 0.77 mg/dL (0.55-1.02)
--- NOTE | 2021-01-31 19:33 | NUR ---
iv infiltrated with scant amount of dilaudid pushed through. new IV placed and infiltrated IV had ice applied, syringe used to get all medicine i could out of area and IV pulled.
--- NOTE | 2021-01-31 19:40 | NUR ---
dr. moody notified of sepsis criteria being met. dr. moody does not feel sepsis protocol needs to be initiated at this time. 1 set of BC danial during US guided IV by RN judgment/discretion. lab notified
[2021-01-31] MEDS ORDERED: ACETAMINOPHEN 500 MG TABLET ONE (19:45)
--- NOTE | 2021-01-31 19:48 | NUR ---
Assist RN: US guided IV initiated.
--- NOTE | 2021-01-31 19:50 | NUR ---
ice pack applied to right hand infiltration site. patient notified of removing this 20 minutes after application. she reports pain relief with this intervention
[2021-01-31 19:51] LABS: MICROSCOPIC NOT IND
--- NOTE | 2021-01-31 20:10 | NUR ---
warm pack applied to right hand infiltration site. patient aware to remove this in 15-20 minutes
--- NOTE | 2021-01-31 20:19 | NUR ---
patient to US
--- NOTE | 2021-01-31 20:40 | NUR ---
patient returned from US. oral temp 99.1. patient shivering. warm blanket provided. call souza in reach. patient reports "the pain is coming back"
--- NOTE | 2021-01-31 21:37 | NUR ---
discharge instructions reviewed with patient. in NAD. VS remain stable on RA. patient reports pain is 3/10 after last pain medication admin. no further questions. prescription handed directly to patient. both IV removed. infiltration site on right hand benign at this time. no infiltration signs noted other than slightly uncomfortable per patient report. RN encouraged patient to continue ice and warm pack alternating on this site for 20 minutes each and off for 1 hour. patient acknowledged teaching. steady gait in room. all personal belongings with patient on dc. 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 patient aware of restrictions of not being allowed to drive, operate heavy machinery or drink alcohol.
[2021-01-31 21:39] VITALS: BP 111/73
== END 2021-01-31 21:44 | disposition home or self-care (01) ==
LOC: ED 21:00
DX: N83.201 Unspecified ovarian cyst, right side (principal); G89.29 Other chronic pain; R00.0 Tachycardia, unspecified; Z90.89 Acquired absence of other organs; Z90.49 Acquired absence of other specified parts of digestive tract; Z90.710 Acquired absence of both cervix and uterus
CPT/HCPCS: 36415; 76830; 80048; 81003; 82040; 85025; 96361; 96374; 96375; 96376; 99284; J1170; J2405; J7030

== ENCOUNTER 2021-02-08 22:17 | Emergency (ER) | payer MEDICAID ==
[~2021-02-08] VITALS: Ht 162.6 cm; Wt 69.6 kg
--- NOTE | 2021-02-08 22:42 | NUR ---
PT in abd pain STATES FEELS LIKE TEARING AND GETTING WORSE SINCE LAST NIGHT. STATES HAS A MESH TO HOLD UP BLADDER, THAT WAS REPLACED IN 2015
[2021-02-08] MEDS ORDERED: SODIUM CHLORIDE 0.9% 1,000ML IVBOLUS ONE (23:00)
[2021-02-08] MEDS ORDERED: MORPHINE SULFATE 4 MG/ML, 1ML IVPush PRN (23:00)
[2021-02-08] MEDS ORDERED: ONDANSETRON 2MG/ML, 2ML IVPush ONE (23:00)
[2021-02-08] MEDS ORDERED: ONDANSETRON 2MG/ML, 2ML ONE (23:32)
[2021-02-08] MEDS ORDERED: MORPHINE SULFATE 4 MG/ML, 1ML ONE (23:34)
[2021-02-08 23:36] LABS: BASOPHILS % (AUTO) 1 % (0-1); EOSINOPHILS % (AUTO) 1 % (1-7); LYMPHOCYTES % (AUTO) 46 % (22-44); MEAN CORPUSCULAR HEMOGLOBIN 29.2 pg (27.0-34.8); MEAN CORPUSCULAR HGB CONC 33.4 g/dL (32.4-35.8); MEAN PLATELET VOLUME 7.9 fL (7.4-10.4); MONOCYTES % (AUTO) 6 % (2-9); NEUTROPHILS % (AUTO) 47 % (42-75); PLATELET COUNT 331 x10^3/uL (130-400); RED BLOOD COUNT 3.93 x10^6/uL (3.82-5.3); RED CELL DISTRIBUTION WIDTH 14.4 % (9.6-15.2)
[2021-02-08 23:39] LABS: MD NO
[2021-02-08 23:44] LABS: ALANINE AMINOTRANSFERASE 17 U/L (12-78); ALBUMIN 4.1 g/dL (3.4-5.0); ANION GAP 5 mmol/L (5-15); CALCIUM 8.9 mg/dL (8.5-10.1); CHLORIDE 111 mmol/L (98-107); CREATININE 0.68 mg/dL (0.55-1.02)
[2021-02-08 23:46] LABS: ALKALINE PHOSPHATASE 71 U/L (45-117); BILIRUBIN,TOTAL 0.1 mg/dL (0.2-1.0); TOTAL PROTEIN 7.7 g/dL (6.4-8.2)
[2021-02-09 00:01] LABS: MICROSCOPIC AUTO
--- NOTE | 2021-02-09 00:04 | NUR ---
PT STATES PAIN IS NOT RELIEVED FROM MORPHINE.REQUESTING MORE PAIN MEDS.
[2021-02-09] MEDS ORDERED: HYDROmorphone 1 MG/ML, 1ML INJ ONE (00:09)
[2021-02-09] MEDS ORDERED: OMNIPAQUE 350 MG/ML, 100ML BOTTLE ONE (00:16)
[2021-02-09] MEDS ORDERED: HYDROmorphone 2 MG/ML, 1ML IVPush ONE (00:30)
--- NOTE | 2021-02-09 00:38 | NUR ---
PT STATES THAT THE PAIN HAS BEEN RELIEVED WITH THE DILAUDID TO A 5/10
--- NOTE | 2021-02-09 00:52 | NUR ---
DR. SALOMON IN TO DISCUSS ED FINDINGS AND POC WITH PT.
[2021-02-09 01:01] VITALS: BP 117/75
[2021-02-09] MEDS ORDERED: KETOROLAC 30 MG/1 ML ONE (01:05)
--- NOTE | 2021-02-09 01:11 | NUR ---
PT. REQUESTED ANOTHER DOSE OF PAIN MEDS PRIOR TO D/C. DISCUSSED WITH DR. SALOMON AND NEW ORDER RECEIVED; MEDCIATED PER MAR. PT. COMING TO PICK PT. UP FOR SAFE D/C HOME.
[2021-02-09] MEDS ORDERED: KETOROLAC 30 MG/1 ML IVPush ONE (01:30)
== END 2021-02-09 01:36 | disposition home or self-care (01) ==
LOC: ED 22:47
DX: A09 Infectious gastroenteritis and colitis, unspecified (principal); R11.2 Nausea with vomiting, unspecified
CPT/HCPCS: 36415; 74177; 80053; 81001; 83690; 85025; 96361; 96374; 96375; 99285; J1170; J1885; J2270; J2405; J7030; Q9967

== ENCOUNTER 2021-02-11 19:00 | Emergency (ER) | payer MEDICAID ==
[~2021-02-11] VITALS: Ht 162.6 cm; Wt 69.4 kg
[2021-02-11] MEDS ORDERED: ONDANSETRON 2MG/ML, 2ML IVPush ONE (20:00)
[2021-02-11] MEDS ORDERED: SODIUM CHLORIDE FLUSH 10ML SYR IVF ONE (20:00)
[2021-02-11] MEDS ORDERED: ONDANSETRON 2MG/ML, 2ML ONE (20:02)
[2021-02-11] MEDS ORDERED: MORPHINE SULFATE 4 MG/ML, 1ML ONE ×2 (20:02→21:33)
[2021-02-11] MEDS: MORPHINE SULFATE 4 MG/ML, 1ML IVPush PRN ×2 (20:29→21:35)
[2021-02-11 20:47] LABS: ALANINE AMINOTRANSFERASE 17 U/L (12-78); ALBUMIN 3.7 g/dL (3.4-5.0); ANION GAP 5 mmol/L (5-15); CALCIUM 8.5 mg/dL (8.5-10.1); CHLORIDE 111 mmol/L (98-107); CREATININE 0.73 mg/dL (0.55-1.02)
--- NOTE | 2021-02-11 20:47 | NUR ---
PT BIB VIA POV. PER PT "MY DR SENT ME, HE GOT MY ULTRASOUND RESULTS AND I HAVE A TWISTED UMBILICAL HERNIA", REPORTS A LOT OF STOMACH PAIN. REPORT RECEIVED TODAY, US WAS LAST WEEK. PT HAS LOWER R QUADRANT ABD PAIN, PT RESTING IN GURNEY, MONITORING IN PLACE, NADN AT THIS TIME, PT MEDICATED PER EMAR, WCTM.
[2021-02-11 20:48] LABS: BASOPHILS % (AUTO) 0 % (0-1); EOSINOPHILS % (AUTO) 1 % (1-7); LYMPHOCYTES % (AUTO) 45 % (22-44); MD NO; MEAN CORPUSCULAR HEMOGLOBIN 29.1 pg (27.0-34.8); MEAN CORPUSCULAR HGB CONC 33.3 g/dL (32.4-35.8); MEAN PLATELET VOLUME 8.1 fL (7.4-10.4); MONOCYTES % (AUTO) 8 % (2-9); NEUTROPHILS % (AUTO) 46 % (42-75); PLATELET COUNT 298 x10^3/uL (130-400); RED BLOOD COUNT 3.73 x10^6/uL (3.82-5.3)
[2021-02-11 20:51] LABS: ALKALINE PHOSPHATASE 59 U/L (45-117); BILIRUBIN,TOTAL 0.2 mg/dL (0.2-1.0); TOTAL PROTEIN 7.2 g/dL (6.4-8.2)
[2021-02-11 21:19] VITALS: BP 106/71
[2021-02-11 22:03] LABS: MICROSCOPIC NOT IND
== END 2021-02-11 22:09 | disposition home or self-care (01) ==
LOC: ED 19:39
DX: G89.29 Other chronic pain (principal); R10.33 Periumbilical pain; R11.2 Nausea with vomiting, unspecified; G43.909 Migraine, unspecified, not intractable, without status migrainosus; M19.90 Unspecified osteoarthritis, unspecified site
CPT/HCPCS: 36415; 76700; 80053; 81003; 83690; 84703; 85025; 96374; 96375; 96376; 99284; J2270; J2405

== ENCOUNTER 2021-03-03 21:11 | Emergency (ER) | payer MEDICAID ==
[~2021-03-03] VITALS: Ht 162.6 cm; Wt 67.4 kg
[~2021-03-03 21:11] MED LIST changes: -ACYC-114 PO; +ACYC-40 PO; -HYDR-1067 PO; +HYDR-2214 PO
[2021-03-03] MEDS ORDERED: ALBUTEROL/IPRATROPIUM 2.5MG/0.5MG, 3 ML ONE (21:43)
[2021-03-03] MEDS ORDERED: ALBUTEROL/IPRATROPIUM 2.5MG/0.5MG, 3 ML NPPB PRN (22:00)
[2021-03-03] MEDS ORDERED: ALBUTEROL/IPRATROPIUM 2.5MG/0.5MG, 3 ML NPPB ONE (22:00)
[2021-03-03] MEDS ORDERED: IBUPROFEN 600 MG TABLET ONE (22:41)
[2021-03-03 22:44] VITALS: BP 109/59
[2021-03-03] MEDS ORDERED: IBUPROFEN 600 MG TABLET PO ONE (23:00)
== END 2021-03-03 23:08 | disposition home or self-care (01) ==
LOC: ED 21:19
DX: J98.01 Acute bronchospasm (principal); U07.1 COVID-19; J06.9 Acute upper respiratory infection, unspecified; B34.9 Viral infection, unspecified; R06.02 Shortness of breath; G89.29 Other chronic pain; Z90.89 Acquired absence of other organs; Z90.49 Acquired absence of other specified parts of digestive tract; Z90.710 Acquired absence of both cervix and uterus; Z90.721 Acquired absence of ovaries, unilateral
CPT/HCPCS: 71045; 93005; 94640; 99285; U0003

== ENCOUNTER 2021-03-07 17:18 | Emergency (ER) | payer MEDICAID ==
[~2021-03-07] VITALS: Ht 162.6 cm; Wt 67.3 kg
--- NOTE | 2021-03-07 17:39 | NUR ---
PT COVID + STATES SHES BEEN SOB WITH N/V/D X2 DAYS. PT ATTACHED TO ALL MONITORS. VSS. ALVARADO.
--- NOTE | 2021-03-07 18:46 | NUR ---
PT BACK FROM BATHROOM WITH STEADY GAIT
[2021-03-07 18:49] LABS: BASOPHILS % (AUTO) 0 % (0-1); EOSINOPHILS % (AUTO) 1 % (1-7); LYMPHOCYTES % (AUTO) 36 % (22-44); MD NO; MEAN CORPUSCULAR HGB CONC 33.2 g/dL (32.4-35.8); MEAN PLATELET VOLUME 8.1 fL (7.4-10.4); MONOCYTES % (AUTO) 6 % (2-9); NEUTROPHILS % (AUTO) 57 % (42-75); PLATELET COUNT 344 x10^3/uL (130-400); RED BLOOD COUNT 4.35 x10^6/uL (3.82-5.3); RED CELL DISTRIBUTION WIDTH 14.2 % (9.6-15.2)
--- NOTE | 2021-03-07 18:50 | NUR ---
ASSUMED CARE OF PATIENT. BEDSIDE REPORT GIVEN FROM LAYA YUOSIF
--- NOTE | 2021-03-07 18:50 | NUR ---
report given to laura diaz.
[2021-03-07 19:01] LABS: ALANINE AMINOTRANSFERASE 22 U/L (12-78); ANION GAP 6 mmol/L (5-15); CALCIUM 9.1 mg/dL (8.5-10.1); CHLORIDE 112 mmol/L (98-107)
[2021-03-07 19:03] LABS: ALKALINE PHOSPHATASE 66 U/L (45-117); BILIRUBIN,TOTAL 0.3 mg/dL (0.2-1.0); CREATININE 0.98 mg/dL (0.55-1.02); TOTAL PROTEIN 7.8 g/dL (6.4-8.2)
[2021-03-07 19:56] VITALS: BP 105/69
== END 2021-03-07 19:59 | disposition home or self-care (01) ==
LOC: ED 17:42
DX: U07.1 COVID-19 (principal); G43.909 Migraine, unspecified, not intractable, without status migrainosus; M06.9 Rheumatoid arthritis, unspecified
CPT/HCPCS: 36415; 71045; 80053; 85025; 93005; 99285

== ENCOUNTER 2021-03-16 00:43 | Emergency (ER) | payer MEDICAID ==
[~2021-03-16] VITALS: Ht 162.6 cm; Wt 68.2 kg
[2021-03-16 00:44] VITALS: BP 120/84
[2021-03-16] MEDS ORDERED: HYDROmorphone 1 MG/ML, 1ML INJ IM ONE (02:30)
[2021-03-16] MEDS ORDERED: HYDROmorphone 1 MG/ML, 1ML INJ ONE (02:39)
== END 2021-03-16 02:48 | disposition home or self-care (01) ==
LOC: ED 01:21
DX: M54.41 Lumbago with sciatica, right side (principal); M06.9 Rheumatoid arthritis, unspecified; G43.909 Migraine, unspecified, not intractable, without status migrainosus; Z90.49 Acquired absence of other specified parts of digestive tract; Z85.43 Personal history of malignant neoplasm of ovary
CPT/HCPCS: 96372; 99283; J1170

== ENCOUNTER 2021-03-22 20:26 | Emergency (ER) | payer MEDICAID ==
[~2021-03-22] VITALS: Ht 162.6 cm; Wt 64.0 kg
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
--- NOTE | 2021-03-22 20:55 | NUR ---
patient to X ray.
[2021-03-22] MEDS ORDERED: OXYcodone/APAP 5/325MG TABLET ONE (20:57)
[2021-03-22] MEDS ORDERED: OXYcodone/APAP 5/325MG TABLET PO ONE (21:00)
--- NOTE | 2021-03-22 21:01 | NUR ---
back from X ray. awaiting result.
--- NOTE | 2021-03-22 21:04 | NUR ---
patient medicated for pain.
--- NOTE | 2021-03-22 21:56 | NUR ---
patient states, pain medication not working. upset and wanting to go home. Xray eventually resulted. patient discharged with instruction.
[2021-03-22 21:59] VITALS: BP 123/78
== END 2021-03-22 22:01 | disposition home or self-care (01) ==
LOC: ED 21:27
DX: S43.401A Unspecified sprain of right shoulder joint, initial encounter (principal); G43.909 Migraine, unspecified, not intractable, without status migrainosus; V02.99XA Pedestrian with other conveyance injured in collision with two- or three-wheeled motor vehicle, unspecified whether traffic or nontraffic accident, initial encounter; Y93.89 Activity, other specified; Y92.89 Other specified places as the place of occurrence of the external cause; Y99.8 Other external cause status
CPT/HCPCS: 99284

== ENCOUNTER 2021-04-14 22:11 | Emergency (ER) | payer MEDICAID ==
[~2021-04-14] VITALS: Ht 162.6 cm; Wt 67.9 kg
[~2021-04-14 22:11] MED LIST changes: -OMEP40CA42 PO; +OMEP40CA8 PO
[2021-04-14 22:14] VITALS: BP 114/81
== END 2021-04-14 23:45 | disposition left against medical advice (07) ==
LOC: ED 23:44
DX: R10.9 Unspecified abdominal pain (principal); M54.9 Dorsalgia, unspecified; Z53.21 Procedure and treatment not carried out due to patient leaving prior to being seen by health care provider
CPT/HCPCS: 99281

== ENCOUNTER 2021-05-17 20:12 | Emergency (ER) | payer MEDICAID ==
[~2021-05-17] VITALS: Ht 162.6 cm; Wt 68.5 kg
--- NOTE | 2021-05-17 21:12 | NUR ---
[facility] in [facility] - 05/17/21 at 2113 by YING ex-: aaron benjamin: [phone]
[2021-05-17 21:30] LABS: MICROSCOPIC NOT IND
[2021-05-17] MEDS ORDERED: OXYcodone/APAP 5/325MG TABLET ONE (21:43)
[2021-05-17] MEDS ORDERED: OXYcodone/APAP 5/325MG TABLET PO ONE (22:00)
[2021-05-17 22:04] LABS: BASOPHILS % (AUTO) 1 % (0-1); EOSINOPHILS % (AUTO) 1 % (1-7); LYMPHOCYTES % (AUTO) 46 % (22-44); MEAN CORPUSCULAR HEMOGLOBIN 28.7 pg (27.0-34.8); MEAN CORPUSCULAR HGB CONC 33.8 g/dL (32.4-35.8); MEAN PLATELET VOLUME 8.1 fL (7.4-10.4); MONOCYTES % (AUTO) 7 % (2-9); NEUTROPHILS % (AUTO) 45 % (42-75); PLATELET COUNT 307 x10^3/uL (130-400); RED BLOOD COUNT 4.12 x10^6/uL (3.82-5.3); RED CELL DISTRIBUTION WIDTH 15.6 % (9.6-15.2)
[2021-05-17 22:14] LABS: ALANINE AMINOTRANSFERASE 18 U/L (12-78); ALBUMIN 3.2 g/dL (3.4-5.0); ANION GAP 3 mmol/L (5-15); CHLORIDE 110 mmol/L (98-107); CREATININE 0.65 mg/dL (0.55-1.02)
[2021-05-17 22:19] LABS: ALKALINE PHOSPHATASE 73 U/L (45-117); BILIRUBIN,TOTAL 0.2 mg/dL (0.2-1.0); TOTAL PROTEIN 7.4 g/dL (6.4-8.2)
[2021-05-18] MEDS ORDERED: KETOROLAC 30 MG/1 ML IM ONE
[2021-05-18] MEDS ORDERED: KETOROLAC 60 MG/2 ML ONE (00:36)
[2021-05-18 00:41] VITALS: BP 101/59
--- NOTE | 2021-05-18 00:52 | NUR ---
TASK RN: DC EDUCATION PROVIDED, PT DEMONSTRATES UNDERSTANDING. PT AMBULATED STEADILY TO DC WITH RN
== END 2021-05-18 00:54 | disposition home or self-care (01) ==
LOC: ED 21:26
DX: R10.31 Right lower quadrant pain (principal); R10.2 Pelvic and perineal pain; M19.90 Unspecified osteoarthritis, unspecified site; Z90.89 Acquired absence of other organs; Z90.49 Acquired absence of other specified parts of digestive tract; Z90.721 Acquired absence of ovaries, unilateral; Z90.710 Acquired absence of both cervix and uterus
CPT/HCPCS: 36415; 76770; 76830; 80053; 81003; 83690; 84703; 85025; 96372; 99285; J1885